=== PATIENT | female | born 2000 | race Caucasian/White ===

== ENCOUNTER 2018-12-11 20:21 | Emergency (ER) | payer OTHER ==
[~2018-12-11] VITALS: Ht 160 cm; Wt 72.7 kg
[2018-12-11 20:38] VITALS: TEMP 98.8
[2018-12-11 22:23] VITALS: BP 113/73; PULSE 89
== END 2018-12-11 22:35 | disposition home or self-care (01) ==
LOC: COL.ER 20:21
DX: S09.90XA Unspecified injury of head, initial encounter (principal); J45.909 Unspecified asthma, uncomplicated; V80.010A Animal-rider injured by fall from or being thrown from horse in noncollision accident, initial encounter; Y93.52 Activity, horseback riding; Y92.39 Other specified sports and athletic area as the place of occurrence of the external cause